=== PATIENT | male | born 1960 | race Caucasian/White ===

== ENCOUNTER 2017-09-05 08:58 | Day surgery (SDC) | payer OTHER ==
[2017-09-03 10:46] LABS: BASOPHILS % (AUTO) 0.4 % (0-1); EOSINOPHILS # (AUTO) 0.1 X10'3 (0-0.9); EOSINOPHILS % (AUTO) 2.5 % (0-6); LYMPHOCYTES # (AUTO) 1.3 X10'3 (1.1-4.8); MEAN CORPUSCULAR HEMOGLOBIN 32.7 PG (27.0-31.0); MEAN CORPUSCULAR VOLUME 93.5 FL (78-98); MEAN PLATELET VOLUME 7.9 FL (7.4-10.4); MONOCYTES # (AUTO) 0.5 X10'3 (0-0.9); MONOCYTES % (AUTO) 11.2 % (2-12); NEUTROPHILS # (AUTO) 2.9 X10'3 (1.8-7.7); NEUTROPHILS % (AUTO) 58.9 % (42-75); PRE OP HEMATOCRIT 45.4 % (42.0-52.0); PRE OP HEMOGLOBIN 15.9 g/dL (14.0-17.9); PRE OP PLATELET COUNT 169 X10'3 (140-440); RED BLOOD COUNT 4.85 X10'6 (4.70-6.10); RED CELL DISTRIBUTION WIDTH 12.3 % (11.5-14.5)
[2017-09-03 11:01] LABS: ALBUMIN 3.5 G/DL (3.4-5.0); ALKALINE PHOSPHATASE 48 IU/L (46-116); BLOOD UREA NITROGEN 20 MG/DL (7-18); BUN/CREATININE RATIO 18.2 (5.4-32.0); CALCIUM 8.8 MG/DL (8.5-10.1); CHLORIDE 108 MMOL/L (99-107); PRE OP ALT 43 U/L (30-65); PRE OP ANION GAP 5 (8-16); PRE OP AST 21 U/L (10-37); PRE OP BILIRUB, TOTAL 0.6 MG/DL (0.0-1.0); PRE OP GLUCOSE 62 MG/DL (70-104); PRE OP POTASSIUM 4.5 MMOL/L (3.4-5.1); PRE OP SODIUM 141 MMOL/L (135-145); TOTAL CARBON DIOXIDE 28.1 MMOL/L (24-32); TOTAL PROTEIN 6.9 G/DL (6.4-8.2); eGFR 69 ML/MIN
[~2017-09-05] VITALS: Ht 188 cm; Wt 105.3 kg
[2017-09-05] VITALS (10 sets, daily range): BP systolic 106–124; BP diastolic 60–78
[~2017-09-05 08:58] MED LIST: ALPR-143 PO; ATEN-169 PO; DOCUMENT DATE & TIME OF BETA-BLOCKER PO ONE; LOSA50TA37 PO; cefazolin/dext.iso 2gm/50ml 50 ML IV ONE; famotidine 20mg tablet PO ONE; ringers solution, lacted 1,000 ML IV SCH
[2017-09-05] MEDS ORDERED: LIDOcaine 1% (10mg/ml) 2ml vial ONE (09:31)
[2017-09-05] MEDS ORDERED: ringers solution, lacted 1,000 ML IV SCH (11:42)
[2017-09-05] MEDS ORDERED: proCHLORperazine 10 MG/2 ml inj IV PRN (11:45)
[2017-09-05] MEDS ORDERED: morphine 2 MG/ML inj. syringe IV PRN ×2 (11:45)
[2017-09-05] MEDS ORDERED: meperidine/PF 50mg/ml syringe IV PRN ×3 (11:45)
[2017-09-05] MEDS ORDERED: ondansetron/PF 4mg/2ml inj IV PRN (11:45)
[2017-09-05] MEDS ORDERED: BUPIVAcaine/PF 2.5 mg/ml (0.25%) 30ml vial ONE (12:38)
[2017-09-05] MEDS ORDERED: ceFAZolin 1000mg inj ONE (12:38)
[2017-09-05] MEDS ORDERED: dexamethasone sod phosphate 4mg/ml inj. ONE (13:25)
[2017-09-05] MEDS ORDERED: ondansetron/PF 4mg/2ml inj ONE (13:25)
[2017-09-05] MEDS ORDERED: sevoflurane 250ml liquid IH ONE (13:25)
[2017-09-05] MEDS ORDERED: ketorolac trometh. 30mg/ml inj. ONE (13:25)
[2017-09-05] MEDS ORDERED: midazolam 2 mg/2 ml injection ONE (13:37)
[2017-09-05] MEDS ORDERED: fentaNYL/PF 50MCG/1 ML 2ML syringe ONE (13:37)
[2017-09-05] MEDS ORDERED: propofol inj 20 ML IV ONE (13:39)
[2017-09-05] MEDS ORDERED: LIDOcaine 2% (20mg/ml) 5ml vial ONE (13:39)
[2017-09-05] MEDS ORDERED: rocuronium 10mg/ml inj IV ONE (13:40)
[2017-09-05] MEDS ORDERED: meperidine/PF 50mg/ml syringe ONE (14:06)
== END 2017-09-05 16:20 | disposition home or self-care (01) ==
LOC: PAS 08:58
PROVIDERS: ATTEND Surgery
DX: K40.20 Bilateral inguinal hernia, without obstruction or gangrene, not specified as recurrent (principal); I34.1 Nonrheumatic mitral (valve) prolapse; I10 Essential (primary) hypertension; Z85.828 Personal history of other malignant neoplasm of skin; Z72.89 Other problems related to lifestyle; Z79.899 Other long term (current) drug therapy
CPT/HCPCS: 36415; 49505; 80053; 85025; 93005; A4315; A6258; C1713; C1727; C1781; J0690; J1100; J1885; J2001; J2175; J2250; J2405; J2704; J3010; J3490; J7120

== ENCOUNTER 2019-10-22 14:59 | Emergency (ER) | payer BC ==
[~2019-10-22] VITALS: Ht 188 cm; Wt 100.0 kg
[~2019-10-22 14:59] MED LIST changes: -DOCUMENT DATE & TIME OF BETA-BLOCKER PO ONE; -LOSA50TA37 PO; +LOSA50TA64 PO; -cefazolin/dext.iso 2gm/50ml 50 ML IV ONE; -famotidine 20mg tablet PO ONE; -ringers solution, lacted 1,000 ML IV SCH
[2019-10-22 15:30] VITALS: BP 148/84
== END 2019-10-22 18:24 | disposition home or self-care (01) ==
LOC: ER 15:00
DX: I80.02 Phlebitis and thrombophlebitis of superficial vessels of left lower extremity (principal); Z79.899 Other long term (current) drug therapy
CPT/HCPCS: 93971; 99284